=== PATIENT | male | born 2005 | race Caucasian/White ===

== ENCOUNTER 2024-02-17 14:11 | Emergency (ER) | payer OTHER, SELFPAY ==
[2024-02-17 14:53] VITALS: BP 106/74; PULSE 74; RESP 16; TEMP 37; O2SAT 98
--- NOTE | 2024-02-17 14:56 | ED.URI ---
HPI - URI/Sore Throat General Chief Complaint: Upper Respiratory Infection Stated Complaint: flu like symptoms Source: patient and RN notes reviewed Mode of arrival: ambulatory Limitations: no limitations History of Present Illness HPI Narrative: 18 y/o male presented for c/o sore throat, cough and headache. Onset 3 days. Denies sob, wheezing, nausea vomiting, diarrhea, fevers or chills. MD elicited complaint: cough Related Data Home Medications Medication Instructions Recorded Confirmed sertraline 100 mg tablet 200 mg 02/17/24 Allergies Allergy/AdvReac Type Severity Reaction Status Date / Time No Known Allergies Allergy Verified 02/17/24 15:13 Review of Systems Review of Systems: CONSTITUTIONAL: Endorses malaise, chills, sweats, fever EYES: Denies visual changes, redness, or discharge ENT: Reports sore throat denies rhinorrhea, congestion, sinus pain, otalgia CARDIOVASCULAR: Denies chest pain, palpitations, edema RESPIRATORY: Reports cough, post nasal drainage. Denies dyspnea GASTROINTESTINAL: Denies abdominal pain, nausea, vomiting, diarrhea SKIN: Denies rash or itching MUSCULOSKELETAL: Denies myalgia NEUROLOGIC: Reports headache Exam Narrative: GENERAL: well-appearing, nontoxic no acute distress. EYES: PERRLA, conjunctivae clear ENT: Mucous membranes moist. TMs pearly giron with dull light reflex bilaterally; no tragal tenderness. Oropharynx mildly erythematous without lesions or exudate, tonsils not enlarged no drooling, no hoarseness, no trismus, uvula midline. No tripod positioning, muffled voice, soft palate or pharyngeal wall bulging NECK: Supple. No lymphadenopathy CHEST: Clear to auscultation, breath sounds equal. HEART: Regular rate and rhythm. No murmur heard. SKIN: Warm, dry, no rash. NEURO: Alert and oriented x3. Course Course Emergency Course: Patient is aware of diagnosis, understands and agrees to treatment plan. Anticipatory guidance given. Patient agrees to follow-up as directed and is aware of reasons to seek care at the emergency department. Portions of this record may have been created with voice recognition software Level of Care: Express Care Visit Vital Signs Vital signs: Vital Signs Temperature 98.6 F 02/17/24 14:53 Pulse Rate 74 02/17/24 14:53 Respiratory Rate 16 02/17/24 14:53 Blood Pressure 106/74 02/17/24 14:53 Pulse Oximetry 98 02/17/24 14:53 Temperature 98.6 F 02/17/24 14:53 Pulse Rate 74 02/17/24 14:53 Respiratory Rate 16 02/17/24 14:53 Blood Pressure 106/74 02/17/24 14:53 Pulse Oximetry 98 02/17/24 14:53 reviewed MDM - URI/Sore Throat MDM Narrative Medical decision making narrative: POS strep result reviewed with pt. Advise supportive treatments. Patient is appropriate for outpatient treatment and follow-up. Differential Diagnosis Differential diagnosis: Likely upper respiratory infection, sinusitis and viral infection Lab Data Labs: Lab Results 02/17/24 Range/Units 14:54 POC Influenza A Ag Negative (Negative) POC Influenza B Ag Negative (Negative) POC SARS CoV-2 Ag Negative (Negative) POC Grp A Strep Screen Positive (Negative) Discharge Plan Discharge Clinical Impression: Strep pharyngitis Patient Disposition: Home, Self-Care Condition: Stable Instructions: Antibiotic Form, Strep Throat (ED) Additional Instructions: - Take the antibiotic as directed. Fever and sore throat typically resolve within one to three days. Most patients can return to work, school after 12 to 24 hours of antibiotic therapy, provided you are fever free and otherwise well. -Eat and drink things that are easy to swallow, like soft foods, cool liquids, tea with honey, or popsicles . -Salt water gargles and/or may use topical anesthetic ( Chloraseptic spray) or lozenges to relieve dryness or throat pain -Alternate Tylenol and ibuprofen as needed for pain and fever as directed. -Frequent hand washing or hand linking machine operator is one of the best ways to prevent spread of infection. Throw away the toothbrush after 24hours of antibiotic. -Follow up with primary care provider in 2-3 days if condition is not improving -Go to the ER if you have trouble breathing, cannot drink enough fluids, have muffled voice or drooling, difficulty opening your mouth, or severe swelling. Prescriptions: New amoxicillin 500 mg tablet 1,000 mg PO DAILY 10 Days Qty: 20 0RF No Action sertraline 100 mg tablet 200 mg Follow-up/Referrals: Lucrecia Rodriguez MD [Primary Care Provider] -
[2024-02-17 15:14] LABS: EDCOVIDSCREEN Negative (Negative); EDINFLUASCREEN Negative (Negative); EDINFLUBSCREEN Negative (Negative); EDSTREPNEGPOS1 Positive (Negative)
== END 2024-02-17 15:34 | disposition home or self-care (01) ==
PROVIDERS: Emergency Provider Nurse Practitioner Family; PCP Pediatrics
DX: J02.0 Streptococcal pharyngitis (principal); Z20.822 Contact with and (suspected) exposure to COVID-19
CPT/HCPCS: 87426; 87804; 87880; 99203; G0463

== ENCOUNTER 2025-02-18 08:43 | Emergency (ER) | payer BC, SELFPAY ==
--- NOTE | 2025-02-18 08:51 | ED.URI ---
HPI - URI/Sore Throat General Chief Complaint: Upper Respiratory Infection Stated Complaint: Sore Throat Time Seen by Provider: 02/18/25 08:55 Source: patient Mode of arrival: ambulatory Limitations: no limitations History of Present Illness HPI Narrative: Trevin is a 19-year-old male patient presenting to the clinic today with complaints of sore throat x1 day. He also endorses a slight cough with node nasal drainage. No fevers, chills, body aches. Does have some associated nausea as well. Denies any headaches. No known sick contacts. Has used some throat spray to help alleviate the pain. Rates his pain /10-burning/aching pain. Related Data Allergies Allergy/AdvReac Type Severity Reaction Status Date / Time No Known Allergies Allergy Verified 02/18/25 08:56 Review of Systems Review of Systems: Pertinent positives per HPI. Patient denies any fever, chills, rash, headache, visual changes, dizziness, shortness of breath, chest pain, palpitations, vomiting, diarrhea, constipation, abdominal pain, or any urinary issues. PMFSH Comments At the time of my signature, I reviewed and agree with the nursing past medical, surgical, social, and family history. There is no relevant family history pertinent to the patient complaint. Exam Narrative: General: Well-developed, well nourished, in no apparent distress Head: Normocephalic, atraumatic Eyes: Pupils equally round and reactive to light bilaterally, EOM intact, sclera and conjunctive clear, no discharge, lids normal Ears: TMs intact and clear, ear canals clear, no drainage, grossly hearing normal. Nose: Nares patent, no discharge, no inflammation, no sinus tenderness. Mouth: Oral pharynx red without lesions or masses, good dentition, MMM. Neck: Supple, trachea midline, no enlargement of anterior or posterior cervical nodes, no thyroid masses or goiter palpable. Cardio: Regular rate and rhythm, s1 and s2 normal, no murmur appreciated. Resp: Clear to auscultation bilaterally, no rhonchi, rales, wheezing or rubs Course Course Emergency Course: Portions of this record may have been created with voice recognition software. Level of Care: Express Care Visit Vital Signs Vital signs: Vital Signs Temperature 36.6 C 02/18/25 08:52 Pulse Rate 76 02/18/25 08:52 Respiratory Rate 18 02/18/25 08:52 Blood Pressure 106/75 02/18/25 08:52 Pulse Oximetry 98 02/18/25 08:52 Temperature 36.6 C 02/18/25 08:52 Pulse Rate 76 02/18/25 08:52 Respiratory Rate 18 02/18/25 08:52 Blood Pressure 106/75 02/18/25 08:52 Pulse Oximetry 98 02/18/25 08:52 Vital signs reviewed MDM - URI/Sore Throat MDM Narrative Medical decision making narrative: At the time of visit patient is resting comfortably on the exam table. Patient appears to be nontoxic. complaints of sore throat x1 day. He also endorses a slight cough with node nasal drainage. No fevers, chills, body aches. Does have some associated nausea as well. Denies any headaches. No known sick contacts. Has used some throat spray to help alleviate the pain. Rates his pain 4/10-burning/aching pain. On exam patient has intact and clear TMs, no nasal drainage, oral pharynx red, no cervical lymphadenopathy. Lung sounds are clear, heart rates regular rate and rhythm. Strep test was performed. Labs: Strep test was positive Plan: Patient has strep pharyngitis. Prescription for amoxicillin was sent to the pharmacy. Work/school note was given. Supportive measures were discussed with the patient and they voiced understanding discharge instructions and agrees to treatment plan. Return precautions reviewed Differential Diagnosis Differential diagnosis: Likely upper respiratory infection, otitis media, sinusitis, viral infection, bronchitis, influenza, pharyngitis and other (COVID) Lab Data Labs: Lab Results 02/18/25 Range/Units 09:03 POC Grp A Strep Screen Positive (Negative) Imaging Data Radiologist's impression: oxicillin was sent to the pharmacy. Discharge Plan Discharge Clinical Impression: Acute streptococcal pharyngitis Patient Disposition: Home Condition: Stable Instructions: Antibiotic Form, Strep Throat (ED) Additional Instructions: Strep test was positive in the clinic today. Change your toothbrush in 24 hours after initiation of the antibiotics Take prescription medications only as prescribed-amoxicillin Increase fluids and stay well hydrated May take Tylenol or motrin as directed on bottle for pain/fever May use Flonase 1 spray in each nare daily May take OTC antihistamines such as Zyrtec or Claritin daily as directed on bottle May apply Vicks vapor rub to chest to open sinuses Sinus rinses for congestion Cepacol spray, cough drops, throat lozenges, warm tea with honey/lemon, gargle salt water to soothe throat BRAT diet for diarrhea Clear liquids x 24 hours then advance as tolerated for nausea/vomiting Go to the ED if you develop a worsening in your condition- high fever not controlled by Tylenol or Motrin, dehydration, weakness, lethargy, shortness of breath, or chest pain. Follow up with your PCP in 3-5 days if symptoms persist. Patient Language: [place] Islander Prescriptions: New amoxicillin 500 mg capsule 500 mg PO Q12H 10 Days Qty: 20 0RF Follow-up/Referrals: PHYSICIAN,AUTOMOTIVE REFINISH TECHNICIAN [Primary Care Provider, Internal Medicine] Stand Alone Forms: Work/School Release IP Time of Disposition: 09:02 Quality NIHSS Nursing Documentation ED NIHSS nursing documentation: reviewed/agree
[2025-02-18 08:52] VITALS: BP 106/75; PULSE 76; RESP 18; TEMP 36.6; O2SAT 98
[2025-02-18 09:04] LABS: EDSTREPNEGPOS1 Positive (Negative)
== END 2025-02-18 09:10 | disposition home or self-care (01) ==
PROVIDERS: Emergency Provider Nurse Practitioner Family
DX: J02.0 Streptococcal pharyngitis (principal)
CPT/HCPCS: 87880; 99213; G0463

== ENCOUNTER 2025-03-08 10:28 | Emergency (ER) | payer BC, SELFPAY ==
[2025-03-08 10:54] VITALS: BP 113/81; PULSE 80; RESP 20; TEMP 36.7; O2SAT 100
--- NOTE | 2025-03-08 11:15 | ED_ITS ---
HPI - URI/Sore Throat General Chief Complaint: Upper Respiratory Infection Stated Complaint: COUGH/SORE THROAT/CONGESTION History of Present Illness HPI Narrative: Chief Complaint Sore throat, congestion, and persistent cough. 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 History of Present Illness The patient reports feeling generally unwell with symptoms including a sore throat, congestion, and a persistent cough. These symptoms initially began with a diagnosis of strep throat on the 18 of February, for which the patient was treated with a course of amoxicillin. The patient noted improvement during antibiotic treatment, but symptoms worsened approximately a week ago, roughly coinciding with the completion of antibiotics. The patient describes the current sore throat pain as mild, rating it a 1-2 out of 10, with significant nasal congestion and dark green nasal drainage. The cough has been persistent, not entirely resolving since the initial illness. The patient's sister also had strep throat around the same time. [id number] medications being used include Claritin and Benadryl. Social History - College student attending in-person classes. Family History - Sister had strep throat around the same time as the patient. Review of Systems - Reports: Sore throat, congestion, cough, mild throat pain, nasal drainage. - Reports not having: Headaches, dizziness, lightheadedness, recent fevers. Vitals and Physical Exam findings Not available. Assessment 1. Recurrent symptoms suggestive of possible unresolved or recurrent strep throat. 2. Consideration of viral upper respiratory infection. 3. Potential sinusitis due to congestion and nasal drainage since prior to Feb 4. Plan - Re-swab for strep to confirm or exclude strep throat. - Review previous medical notes to confirm antibiotic treatment. - Depending on strep results, consider appropriate antibiotic therapy if necessary. - Educate patient on supportive care measures for symptom management. - Monitor symptoms over the next few days and follow up if no improvement or worsening occurs. MD elicited complaint: cough, sore throat, rhinorrhea and nasal congestion Related Data Allergies Allergy/AdvReac Type Severity Reaction Status Date / Time No Known Allergies Allergy Verified 03/08/25 10:41 Review of Systems Review of Systems: All systems reviewed & are unremarkable except as noted in HPI and below Eyes: Eyes: Reports as per HPI ENT: Reports as per HPI Cardiovascular: Cardiovascular: Reports as per HPI Respiratory: Respiratory: Reports as per HPI Genitourinary: Genitourinary: Reports as per HPI Musculoskeletal: Musculoskeletal: Reports as per HPI Integumentary/Breasts: Skin/Breast: Reports as per HPI Neurologic: Reports as per HPI Psychiatric: Psychiatric: Reports as per HPI Endocrine: Endocrine: Reports as per HPI Hematologic/Lymphatic: Hematologic/Lymphatic: Reports as per HPI Allergic/Immunologic: Allergic/Immunologic: Reports as per HPI Exam Const: General: cooperative, healthy appearing, comfortable, no acute distress and well developed Orientation/consciousness: patient oriented x3 HENMT: Head: normal to inspection Throat: tonsils normal and posterior oropharynx abnormal erythema; no exudates Eyes: General: appearance normal, both eyes and all related structures Resp: Effort & Inspection: normal respiratory effort and able to speak in complete sentences Auscultation: clear to auscultation bilaterally Cardio: Rate: regular rate Rhythm: regular rhythm Heart sounds: S1 normal heart sound present and S2 normal heart sound present Skin: General skin exam: normal color Neuro: General: patient oriented x3 Cognition (Neuro): normal cognition Speech: normal speech Psych: Mental Status: mental status grossly normal Course Course Level of Care: Express Care Visit Vital Signs Vital signs: Vital Signs Temperature 98.0 F 03/08/25 10:54 Pulse Rate 80 03/08/25 10:54 Respiratory Rate 20 03/08/25 10:54 Blood Pressure 113/81 03/08/25 10:54 Pulse Oximetry 100 03/08/25 10:54 Oxygen Delivery Room Air 03/08/25 10:54 Temperature 98.0 F 03/08/25 10:54 Pulse Rate 80 03/08/25 10:54 Respiratory Rate 20 03/08/25 10:54 Blood Pressure 113/81 03/08/25 10:54 Pulse Oximetry 100 03/08/25 10:54 Oxygen Delivery Room Air 03/08/25 10:54 MDM - URI/Sore Throat MDM Narrative Medical decision making narrative: Assessment Differetials 1. Recurrent symptoms suggestive of possible unresolved or recurrent strep thro at pt previously on amoxicillin. 2. Consideration of viral upper respiratory infection. 3. Potential sinusitis due to congestion and nasal drainage since prior to Feb 4. Plan - Re-swab for strep to confirm or exclude strep throat. Strep negative - Review previous medical notes to confirm antibiotic treatment. - Educate patient on supportive care measures for symptom management. - will treat for sinusitis as this issue has been going on for over 2 weeks. Amoxicillin was used for strep will treat with augmentin. discussed probiotic usage Differential Diagnosis Differential diagnosis: Likely upper respiratory infection, otitis media, sinusitis, viral infection and pharyngitis Medical Records Attestation: I reviewed the patient's medical records. Lab Data Attestation: I reviewed the patient's lab results. Lab results narrative: strep negative Discharge Plan Discharge Clinical Impression: Sinusitis, Cough Patient Disposition: Home Condition: Stable Instructions: Antibiotic Form Additional Instructions: Pseudoephedrine per package directions as needed for congestion. Antibioitcs as prescribed. You can use a netti pot also to help with congestion. Strep was negative today Patient Language: Albanian Prescriptions: New amoxicillin-pot clavulanate 875-125 mg tablet 1 tablet PO Q12H Qty: 20 0RF fluticasone propionate [24 Hour Allergy Relief] 50 mcg/actuation spray,suspension 2 spray intranasal DAILY Qty: 16 0RF Rx Instructions: administer into each nostril Follow-up/Referrals: Lucrecia Rodriguez MD [Primary Care Provider, Pediatrics] Time of Disposition: 11:42
[2025-03-10 11:50] LABS: EDSTREPNEGPOS1 Negative (Negative)
== END 2025-03-08 11:47 | disposition home or self-care (01) ==
PROVIDERS: Emergency Provider Nurse Practitioner Family; PCP Pediatrics
DX: J32.9 Chronic sinusitis, unspecified (principal); R05.9 Cough, unspecified
CPT/HCPCS: 87081; 87880; 99213; G0463